=== PATIENT | female | born 1960 | race Caucasian/White ===

== ENCOUNTER 2019-12-19 18:28 | Emergency (ER) | payer OTHER, SELFPAY ==
[2019-12-19 18:47] VITALS: BP 180/88; PULSE 98; RESP 18; TEMP 36.5; O2SAT 95; BMI 50.7
--- NOTE | 2019-12-19 20:00 | W.ED.SKABFB ---
HPI - Skin/Abscess/Foreign Bdy General: Chief complaint: Skin/Abscess/Foreign Body Stated complaint: SPIDER BITE/SENT FROM [facility] [place] Time Seen by Provider: 12/19/19 19:49 History of Present Illness: HPI narrative: Sent from urgent care because eschar forming and spider bite wound on her left upper arm she initially seen on 26 November and was given doxycycline and prednisone the wound continue to expand in size and has redness around the outside part is now formed a lot of eschar. Patient is afebrile says it hurts some MD complaint: insect bite/sting Onset (ago): day(s) Tetanus up to date: yes Location: LUE Severity: mild Quality: aching Pain Consistency: constant Context: recent antibiotic Associated symptoms: Reports no associated symptoms; Deny chills, fever(s), nausea or vomiting Treatments prior to arrival: antibiotic Review of Systems Const: Denies: fever(s), chills or body aches Eyes: Denies: change in vision or blurry vision ENMT: Denies: throat pain or nasal congestion Card: Denies: chest pain or dyspnea on exertion Resp: Denies: dyspnea, productive cough or non-productive cough GI: Denies: abdominal pain, nausea or vomiting Musc: Denies: extremity pain Skin/Breast: Reports: skin tenderness (Patient has eschar forming and spider bite wound left upper extremity); Denies: rash Neuro: Denies: headache(s) Psych: Denies: anxiety or depression Yadiel/Lymph: Denies: easy bruising PFSH ED PFSH: Social History (Updated 11/24/19 @ 13:58 by Sharee Anton LPN) Smoking and tobacco status: never smoked Alcohol intake: current Alcohol intake frequency: holidays/special occasions only Lives independently: No Household members: spouse Housing: House Marital status: Number of children: 2 Number of grandchildren: 6 Highest education level completed: High School Graduate Current occupational status: employed Current occupation: [employer] Current occupational exposures/hazards: Yes Pets and animals: Yes Pets & animals: dog(s) History of recent travel: No Sexually active: No Current gender identity: Female Special jadon needs: No Physical Exam Const: COMMON NORMALS: no acute distress, average body habitus and patient oriented x3 HENMT: COMMON NORMALS: normocephalic HEAD & SCALP: normal to inspection and normocephalic FACE & SINUS: normal facial exam Eye: COMMON NORMALS: conjunctivae normal GENERAL EYE: appearance normal, both eyes and all related structures CONJUNCTIVA: Yes conjunctivae normal Neck/C-Spine: COMMON NORMALS: no JVD Chest: COMMONS NORMALS: normal inspection of the chest Resp: COMMON NORMALS: normal respiratory effort Cardio: COMMON NORMALS: no JVD, regular rate and regular rhythm RATE: regular rate RHYTHM: regular rhythm GI: COMMON NORMALS: Normal to inspection, nondistended, normoactive bowel sounds present Extremity: COMMON NORMALS: normal to inspection and full ROM Neuro: COMMON NORMALS: patient oriented x3 Skin: OTHER: Left upper extremity posterior aspect has a large area of eschar with slight redness around it does have a little bit of drainage does not show very much erythema it is probably about 3 to 4 inches long by inch and a half wide irregular not spread away from the wound much at all. 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
[2019-12-19] MEDS: TRAMadol 50 mg Tablet PO (20:15)
[2019-12-19] MEDS: sulfamethoxazole-trimeth DS 160-800 mg Tablet 1 TAB PO (20:15)
[2019-12-19 20:16] VITALS: BP 134/76; PULSE 89; RESP 16; O2SAT 99
--- NOTE | 2019-12-20 10:53 | DCPLANNER ---
freelance digital project manager had message to schedule a follow up appointment for patient with Wound Care. freelance digital project manager called [facility], spoke with Edyta, a follow up appointment was scheduled for , December 20, 2019 at 1:[address] Torres. freelance digital project manager called patient and informed patient of the scheduled appointment.
--- NOTE | 2019-12-26 13:54 | DCPLANNER ---
Patient had a follow up appointment scheduled for 12.20.19 with Wound Care - patient did attend appointment.
== END 2019-12-19 20:48 | disposition home or self-care (01) ==
PROVIDERS: Emergency Provider Nurse Practitioner Family; Family Provider Family Medicine
DX: L98.9 Disorder of the skin and subcutaneous tissue, unspecified (principal)
CPT/HCPCS: 12345; 87070; 87077; 87186; 99281; 99283

== ENCOUNTER 2019-12-20 13:18 | Outpatient (CLI) | payer OTHER, SELFPAY | END 2019-12-20 13:19 | disposition home or self-care (01) | LOC: WOUND 13:18 | PROVIDERS: Family Provider Family Medicine; Visit Provider Thoracic Surgery (Cardiothoracic Vascular Surgery) | DX: L98.498 Non-pressure chronic ulcer of skin of other sites with other specified severity (principal) | CPT/HCPCS: 11042; 11045; 17250; G0463 ==

== ENCOUNTER 2019-12-27 13:40 | Outpatient (CLI) | payer OTHER, SELFPAY | END 2019-12-27 13:41 | disposition home or self-care (01) | LOC: WOUND 13:40 | PROVIDERS: Family Provider Family Medicine; Visit Provider Thoracic Surgery (Cardiothoracic Vascular Surgery) | DX: E11.622 Type 2 diabetes mellitus with other skin ulcer (principal); L98.492 Non-pressure chronic ulcer of skin of other sites with fat layer exposed | CPT/HCPCS: 11042; 11045 ==

== ENCOUNTER 2020-01-03 13:41 | Outpatient (CLI) | payer OTHER, SELFPAY | END 2020-01-03 13:42 | disposition home or self-care (01) | LOC: WOUND 13:41 | PROVIDERS: Family Provider Family Medicine; Visit Provider Thoracic Surgery (Cardiothoracic Vascular Surgery) | DX: E11.622 Type 2 diabetes mellitus with other skin ulcer (principal); L98.492 Non-pressure chronic ulcer of skin of other sites with fat layer exposed | CPT/HCPCS: 11042; 11045 ==

== ENCOUNTER 2020-01-10 15:10 | Outpatient (CLI) | payer OTHER, SELFPAY | END 2020-01-10 15:11 | disposition home or self-care (01) | LOC: WOUND 15:11 | PROVIDERS: Family Provider Family Medicine; Visit Provider Thoracic Surgery (Cardiothoracic Vascular Surgery) | DX: E11.622 Type 2 diabetes mellitus with other skin ulcer (principal); L98.492 Non-pressure chronic ulcer of skin of other sites with fat layer exposed | CPT/HCPCS: 11042 ==

== ENCOUNTER → 2020-01-20 14:15 | Outpatient (BNVA) | payer OTHER, SELFPAY | PROVIDERS: Family Provider Family Medicine; Visit Provider Family Medicine | DX: Z20.828 Contact with and (suspected) exposure to other viral communicable diseases (principal) | CPT/HCPCS: 87635 ==

== ENCOUNTER → 2022-07-01 09:00 | Outpatient (BNVA) | payer OTHER, SELFPAY | PROVIDERS: Family Provider Family Medicine; PCP Family Medicine; Visit Provider Family Medicine | DX: I10 Essential (primary) hypertension (principal); Z76.89 Persons encountering health services in other specified circumstances | CPT/HCPCS: 80053; 80061; 83036; 84443; 85025 ==

== ENCOUNTER → 2022-07-06 11:03 | Outpatient (BNVA) | payer OTHER, SELFPAY | PROVIDERS: Family Provider Family Medicine; PCP Family Medicine; Visit Provider Family Medicine | DX: I10 Essential (primary) hypertension (principal); Z76.89 Persons encountering health services in other specified circumstances | CPT/HCPCS: 82043 ==

== ENCOUNTER → 2022-11-09 09:26 | Outpatient (BNVA) | payer OTHER, SELFPAY | PROVIDERS: Family Provider Family Medicine; PCP Family Medicine; Visit Provider Family Medicine | DX: I10 Essential (primary) hypertension (principal); E83.52 Hypercalcemia | CPT/HCPCS: 80048; 82306; 83036 ==